=== PATIENT | female | born 1945 | race Caucasian/White ===

== ENCOUNTER 2017-03-06 09:42 | Observation (INO) ==
--- NOTE | 2017-03-06 10:42 | Emergency Department Note ---
Junior Corley Brittany, am scribing for, and in the presence of, Augusto Cardozo MD 10: 32. Juliane Corley James D, MD, personally performed the services described in this documentation, ascribed by Lisbeth Pacheco in my presence, and it is both accurate and complete . Arrival - Arrival Chief Complaint: Chest Pain ED Nursing Triage Note: pt was transfered from [facility] with cp and n/v. +sob Mode of Arrival: Stretcher Limitations: No Limitations Source: Patient, Family Time Seen by Provider: 03/06/17 10:20 - History of Present Illness HPI Narrative: This is a 71 y/o white female,who presents to the ED by EMS, transferred from [facility], for further evaluation of CP which started at 0500 this morning. She describes the pain as a sharp pressure type of pain. She localizes the pain to the mid sternum and did not radiate to the jaw or the left arm. She reports nausea and dyspnea with the chest pain but denies any diaphoresis. She states she took an ASA at home. Her PCP is Dr. Ziyad Small. She denie having a training development director. Pt reports the chest pain has now resolved. Pt has no other complaints/pain in the ED at this time. Pt has a PMHx of HTN, NIDDM, and Renal cancer. Pt denies a surgical Hx. Pt denies a family medical Hx. Pt denies a social Hx. Onset (ago): hour(s) (Started at 0500 this morning) Consistency: now resolved Severity: moderate Quality: sharp, other (Pressure) Allergies/Adverse Reactions: Allergies Allergy/AdvReac Type Severity Reaction Status Date / Time codeine Allergy Vomiting Verified 03/06/17 09:49 Penicillins AdvReac RASH Verified 03/06/17 09:49 Home Medications: Home Medications Medication Instructions Recorded Confirmed Type Aspirin EC Tab 81 mg PO DAILY 03/06/17 03/06/17 History Budesonide/Formoterol 160-4.5 2 puff INH Q4H 03/06/17 03/06/17 History [Symbicort 160-4.5] Ketorolac Tromethamine [Ketorolac 1 drop BOTH EYES DAILY 03/06/17 03/06/17 History 0.5% Oph Soln] Magnesium Chloride [Slow Mag] 64 mg PO BID 03/06/17 03/06/17 History Meloxicam 7.5 mg PO DAILY 03/06/17 03/06/17 History Potassium Chloride 20 meq PO DAILY 03/06/17 03/06/17 History amLODIPine [Norvasc] 10 mg PO DAILY 03/06/17 03/06/17 History dilTIAZem HCl [Diltiazem ER (12 90 mg PO DAILY 03/06/17 03/06/17 History hr)] glipiZIDE [Glipizide] 5 mg PO BID 03/06/17 03/06/17 History hydroCHLOROthiazide 25 mg PO DAILY PRN 03/06/17 03/06/17 History [Hydrochlorothiazide] metFORMIN [Glucophage] 500 mg PO BID 03/06/17 03/06/17 History Review of System - Review of System 12 point system: reviewed and no additional remarkable complaints except as stated - Review of System Constitutional: Absent: diaphoresis Cardiovascular: Present: chest pain, dyspnea on exertion Gastrointestinal: Present: nausea Medical,Surgical,& Family Hx - Medical History Cardio: History of: Hypertension Endocrine: History of: Diabetes Mellitus (NIDDM) Renal: History of: Renal (Kidney) Cancer - Social History Smoking Status: Never smoker Frequency of Alcohol Use: None Type of Drug Use: None Exam Vital Signs: Vital Signs Temperature 97.4 F L 03/06/17 09:43 Pulse Rate 84 03/06/17 10:13 Respiratory Rate 13 03/06/17 10:13 Blood Pressure 123/85 03/06/17 10:13 O2 Sat by Pulse Oximetry 98 03/06/17 10:13 GENERAL: This is a well-nourished well-developed white female in no apparent distress. VITAL SIGNS: Reviewed HEENT: Head is atraumatic and normocephalic. Pupils are equal round react to light. Extraocular movements are intact. Oropharynx is benign with moist mucous membranes. NECK: Neck is soft and supple without tenderness. There are no masses. There is no lymphadenopathy. LUNGS: Lungs are clear to auscultation. Chest rises symmetrically. There is no chest wall tenderness. CV: Heart is regular rate and rhythm without murmurs rubs or gallops. ABDOMEN: Abdomen is soft, nontender to palpation. There are no abdominal abnormal masses palpated. There is no organomegaly. Bowel sounds are present and active. SKIN: Skin is warm and dry. No rash. EXTREMITIES: Patient has full range of motion without tenderness. There is no pedal edema. NEUROLOGIC: Awake alert and oriented 4. Cranial nerves II through XII are grossly intact. Motor is 5 over 5 in all extremities bilaterally. Course - Consultations Consultation #1: Discussed with hospitalist. Patient will be admitted to their service Time: 10:42 Results - EKG EKG results: interpreted by ERMD - Impressions EKG: Normal sinus rhythm with a rate of 85, low voltage QRS, nonspecific ST-T wave changes. Disposition Clinical Impression: Chest pain, Diabetes mellitus, Essential hypertension Case discussed with: patient Disposition: Still a Patient Condition: Stable
[2017-03-06] MEDS ORDERED: hydroCHLOROthiazide 25 MG TABLET PO PRN (12:14)
[2017-03-06] MEDS ORDERED: DEXTROSE 50% 25 GM/50 ML VIAL IV PRN ×2 (12:14→14:35)
[2017-03-06] MEDS ORDERED: DOCUSATE SODIUM 100 MG CAPSULE PO PRN (12:14)
[2017-03-06] MEDS ORDERED: GLUCAGON 1 MG VIAL IM PRN ×2 (12:14→14:35)
[2017-03-06] MEDS ORDERED: ACETAMINOPHEN 325 MG TABLET PO PRN (12:14)
[2017-03-06] MEDS ORDERED: ONDANSETRON 4 MG/2 ML VIAL IV PRN (12:14)
--- NOTE | 2017-03-06 12:17 | EKG Report ---
Stationary ECG Study [facility] ER Test Date: 03/06/2017 9:55:52 AM Pat Name: MARÍA GARCIA Department: Room: 282 Gender: F Project Management Consultant: : 1945 Requested by: Patricia Mae Order Number: [id number] Reading MD: MENDOZA PALMA Intervals [place] Rate: 85 P: 49 [place]: 194 QRS: 49 QRSD: 97 T: -10 QT: 385 QTc: 427 Interpretive Statements SINUS RHYTHM LOW QRS VOLTAGE IN PRECORDIAL LEADS NONSPECIFIC T-WAVE ABNORMALITY Electronically Signed On 03-06-17 16:14:07 CDT by MENDOZA PALMA [email or web address]
--- NOTE | 2017-03-06 12:20 | Hospitalist History & Physical ---
<Patricia Mae - Last Filed: 03/06/17 12:09> Assessment and Plan (1) Chest pain Status: Acute Assessment and plan: Admit to telemetry for observation. Serial EKGs and serial troponins. Chest x- ray. Consult cards. BNP ordered. BMP and CBC ordered stat and in am. Current Visit: Yes (2) Diabetes mellitus Status: Acute Assessment and plan: Accuchecks achs. SSI ordered. Hemoglobin a1c in am. Diabetic diet. Current Visit: Yes (3) Essential hypertension Status: Acute Assessment and plan: Restart home meds. Current Visit: Yes History of Present Illness Chief complaint: Chest pain History of present illness: Ms. Woody is a 71 year old white female with a history of hypertension, diabetes , asthma, and kidney cancer was transferred from [facility] for evaluation of chest pain. Patient states that she began having severe chest pain this morning that woke her from sleep around 5 am. Patient describes midsternal chest pain that was "sharp and smothering" causing her to be short of breath. Patient took an aspirin along with her other morning medications. Patient states the pain did not radiate but with it she experienced nausea and she vomited twice. Patient denies ever having this chest pain in the past. Patient reports she went to her [id number]'s house and alerted her of the chest pain. They proceeded to the [facility] and was transferred here. Lab work (BMP/CBC/troponin) reviewed from outside facility and was unremarkable. Initial cardiac biomarker performed here was negative. Chest x- ray pending and serial troponins to follow. Patient will be admitted to the hospitalist service for further evaluation. Home Medications Medication Instructions Recorded Confirmed Type Aspirin EC Tab 81 mg PO DAILY 03/06/17 03/06/17 History Budesonide/Formoterol 160-4.5 2 puff INH Q4H 03/06/17 03/06/17 History [Symbicort 160-4.5] Ketorolac Tromethamine [Ketorolac 1 drop BOTH EYES DAILY 03/06/17 03/06/17 History 0.5% Oph Soln] Magnesium Chloride [Slow Mag] 64 mg PO BID 03/06/17 03/06/17 History Meloxicam 7.5 mg PO DAILY 03/06/17 03/06/17 History Potassium Chloride 20 meq PO DAILY 03/06/17 03/06/17 History amLODIPine [Norvasc] 10 mg PO DAILY 03/06/17 03/06/17 History dilTIAZem HCl [Diltiazem ER (12 90 mg PO DAILY 03/06/17 03/06/17 History hr)] glipiZIDE [Glipizide] 5 mg PO BID 03/06/17 03/06/17 History hydroCHLOROthiazide 25 mg PO DAILY PRN 03/06/17 03/06/17 History [Hydrochlorothiazide] metFORMIN [Glucophage] 500 mg PO BID 03/06/17 03/06/17 History sitaGLIPtin [Januvia] 100 mg PO DAILY 03/06/17 03/06/17 History Allergies Allergy/AdvReac Type Severity Reaction Status Date / Time codeine Allergy Vomiting Verified 03/06/17 09:49 Penicillins AdvReac RASH Verified 03/06/17 09:49 Medical,Surgical,& Family Hx - Medical History Cardio: History of: Hypertension Endocrine: History of: Diabetes Mellitus (NIDDM) Renal: History of: Renal (Kidney) Cancer - Family History Family History: Reports;: Family Cancer, Family Heart Disease - Social History Smoking Status: Never smoker Frequency of Alcohol Use: None Type of Drug Use: None Lives With:: Alone Functional capacity: uses cane/walker - Constitutional Constitutional: Present: frequent falls, headache(s). Absent: chills - EENT Eyes: Present: loss of vision, requires corrective lense Ears: Absent: decreased hearing, ear discharge Nose, mouth and throat: Present: headache(s). Absent: dysphagia, epistaxis - Cardiovascular Cardiovascular: Present: chest pain at rest, chest pain with activity, dyspnea on exertion, edema - Respiratory Respiratory: Present: dyspnea, dyspnea on exertion. Absent: hemoptysis - Gastrointestinal Gastrointestinal: Present: nausea, vomiting. Absent: abdominal pain - Genitourinary Genitourinary: Present: urinary incontinence. Absent: difficulty urinating - Neurological Neurological: Absent: confusion Exam - Constitutional Vitals: Period Temp Pulse Resp BP Sys/Lu Pulse Ox Last 24 Hr 97.4 F-97.4 F 82-92 13-18 123-136/83-92 96-98 General appearance: no acute distress, over weight - Head Head exam: Present: normal inspection, normocephalic - Eye Eye exam: Present: EOMI. Absent: periorbital swelling Pupils: Present: KORTNEY. Absent: dilated - Neck Neck exam: Present: normal inspection - Respiratory Respiratory exam: Present: other (coarse). Absent: rhonchi - Cardiovascular Cardiovascular exam: Present: regular rate and rhythm, other - GI/Abdominal GI/Abdominal exam: Present: normal bowel sounds, soft. Absent: tenderness - Extremities Exam Extremities exam: Present: normal capillary refill, full ROM, edema (trace in BLE) - Neurological Exam Neurological exam: Present: alert, oriented X3 - Psychiatric Psychiatric exam: Present: normal affect, normal mood - Skin Skin exam: Present: normal color, warm, dry Results - Labs Labs: Labs reviewed from outside facility Glucose 194 BUN 29 Creatinine 0.9 Calcium 8 point Sodium 141 Potassium 3.9 Chloride 103 Bicarb 27 CK 61 MMB 0.2 Myoglobulin 31 Magnesium 1.4 Troponin <0.017 WBC 9.3 RBC 4.8 HGB 13.3 HCT 40.4 Platelet 287 <Ghada Chow - Last Filed: 03/06/17 16:39> Assessment and Plan - Time spent with patient Time spent with patient: Greater than 30 minutes (32 minutes) History of Present Illness Chief complaint: Chest pain since 5AM History of present illness: Ms. Woody is a 71 year old female with history of kidney cancer, diabetes mellitus type 2, hypertension and asthma who presented to the hospital with a chief complaint of nonpleuritic, nonreproducible, non-positional severe midsternal chest pain described as pressure that started at approximately 5 AM. She denies that it was associated with eating. Patient states that it awoke her from sleep. She denies that the chest pain radiates. It was associated with shortness of breath. She took aspirin and her morning meds on an empty stomach and then afterwards began having nausea and vomiting 2. She denies any diaphoresis. She denies any abdominal pain. She told her daughter who took her to an outside hospital where a Nitropaste was placed. She said after that the pain resolved. That was approximately an hour. The case was discussed with Dr. Ambrose with [facility] from the outside hospital who referred her to [facility] for further evaluation and treatment. Patient denies any similar episodes in the past. A 10 point review of systems was reviewed with the patient and was unremarkable. Past medical history: Kidney cancer, diabetes, hypertension, asthma, nephrolithiasis Past surgical history: Bilateral cataract extractions, tonsillectomy, , total abdominal hysterectomy, cholecystectomy, lithotripsy, right kidney removal, Squamous cell carcinoma excision from the left side of her nose, and a left total knee replacement. Medication: Reviewed Allergies: Codeine-nausea and vomiting; penicillin-rash and itch Family history: Mother had an ND; grandmother, mother, and son had diabetes; father had "heart problems" in rheumatoid arthritis; daughter had breast cancer Social history: She denies any tobacco, alcohol, illicit drug use. She is . Vitals: GEN: A and O x 3 HEENT: Neck is supple. no lymphadenopathy or thyromegaly appreciated. no JVD. no carotid bruits auscultated. CV: RRR no M LUNGS: CTAB nonlabored ABD: Soft, NT, ND, +BS EXT: Warm no c/c/e NEURO: nonfocal Labs/Investigative studies: reviewed A/P: 1. Typical chest pain- R/O ACS 2. DM2 3. Asthma 4. Essential HTN 5. S/P right nephrectomy due to history of cancer Place in observation Cycle cardic markers Cardiology consult TSH Cardiac telemetry Would hold the meloxicam as NSAIDS can be associated with cardiac events. Resume home meds that are clinically appropriate DVT prophylaxis D/W pt and family and all questions answered. Exam - Constitutional Vitals: Period Temp Pulse Resp BP Sys/Lu Pulse Ox Last 24 Hr 97.4 F-97.4 F 82-92 13-18 116-136/78-92 96-98 Results - Labs CBC & BMP: 03/06/17 12:44 03/06/17 10:05
[2017-03-06] MEDS: BUDESONIDE/FORMOTEROL 160-4.5 INHALER 6 GM INH SCH ×3 (12:30→22:13)
--- NOTE | 2017-03-06 12:39 | EKG Report ---
Stationary ECG Study [facility] Test Date: 03/06/2017 12:38:32 PM Pat Name: MARÍA GARCIA Department: Room: 282 Gender: F Assistant Auto Center Manager: : 1945 Requested by: Patricia Mae Order Number: [id number] Reading MD: MENDOZA PALMA Intervals [place] Rate: 79 P: 68 [place]: 205 QRS: -26 QRSD: 108 T: 68 QT: 404 QTc: 438 Interpretive Statements SINUS RHYTHM BORDERLINE LEFT AXIS DEVIATION Electronically Signed On 03-06-17 16:15:11 CDT by MENDOZA PALMA [email or web address]
[2017-03-06 12:41] LABS: Magnesium 1.7 MG/DL (1.8-2.4); Osmolality,Calculated 287.3 MOS/KG (273-304); Potassium 3.8 MMOL/L (3.5-5.1)
[2017-03-06 12:53] LABS: Basophils % 0.4 % (0.0-0.8); Eosinophils # 0.1 10*3/uL (0.0-0.87); Eosinophils % 1.1 % (0.00-10.9); Hematocrit 38.3 VOL% (35.7-47.0); Hemoglobin 12.8 GM/DL (12.0-16.0); Immature Granulocytes % 0.4 %; Immature Granulocytes Absolute 0.04 #; Lymphocytes # 2.1 10*3/uL (1.4-4.0); Lymphocytes % 22.7 % (21.3-54.2); Mean Corpuscular HGB Conc 33.4 GM/DL (32-36); Mean Corpuscular Hemoglobin 28 PG (27-34); Mean Corpuscular Volume 83.8 FL (87-102); Monocytes # 0.5 10*3/uL (0.11-0.8); Monocytes % 5.5 % (1.7-12.7); Neutrophils # 6.6 10*3/uL (1.4-7.4); Neutrophils % 69.9 % (38.7-73.9); Platelet Count 259 T/CUMM (130-400); Red Blood Count 4.57 MC/CUMM (3.8-5.5); Red Cell Distribution Width 13.7 % (9.3-17.3); White Blood Count 9.4 T/CUMM (4-12)
[2017-03-06 13:02] LABS: INR 0.9; PT Patient Result 9.8 SECS
--- NOTE | 2017-03-06 13:06 | XRay Report ---
XR chest 1V portable Indication: Chest pain Comparison: Chest x-ray dated March 06, 2017 Technique: Single frontal view of the chest. Findings: The cardiomediastinal silhouette is stable in configuration. Chronic change of the lungs without focal consolidation, pleural effusion, or pneumothorax. Visualized osseous and surrounding soft tissue structures demonstrate no acute abnormality. IMPRESSION: No acute cardiopulmonary process demonstrated. PROCEDURE INTERPRETED AT [facility] DEPARTMENT OF RADIOLOGY Final Report Signed by: Dr Craig Paez
--- NOTE | 2017-03-06 15:11 | EKG Report ---
Stationary ECG Study [facility] Test Date: 03/06/2017 3:12:12 PM Pat Name: MARÍA GARCIA Department: Room: 282 Gender: F Nicker: PRADEEP : 1945 Requested by: Patricia Mae Order Number: [id number] Reading MD: MENDOZA PALMA Intervals [place] Rate: 85 P: 66 [place]: 217 QRS: -44 QRSD: 103 T: 61 QT: 355 QTc: 397 Interpretive Statements SINUS RHYTHM WITH PROLONGED [place] INTERVAL MARKED LEFT AXIS DEVIATION MODERATE VOLTAGE CRITERIA FOR LVH, CONSIDER NORMAL VARIANT POSSIBLE SEPTAL MYOCARDIAL INFARCTION, PROBABLY OLD Electronically Signed On 03-06-17 16:16:19 CDT by MENDOZA PALMA [email or web address]
[2017-03-06 16:02] LABS: Apearance,Urine CLEAR (Clear); Bacteria,Urine Many /HPF (Few); Bilirubin,Urine Negative (Negative); Blood, Urine Negative (Negative); Glucose,Urine (UA) Negative (Negative); Ketones,Urine Negative (Negative); Mucus,Urine Occasional /LPF (Occasional); Nitrite,Urine Positive (Negative); Protein,Urine Negative; RBC,Urine <1 /HPF (0-4); Squamous Epithelial Cell,Urine Occasional /HPF (0-10); Urine Color Yellow (Yellow); Urine Urobilinogen < 2.0 EU/DL (0.2-1.0); WBC,Urine 1 /HPF (0-6)
[2017-03-06 16:32] LABS: Troponin I Only < 0.015 NG/ML (0.00-0.045)
[2017-03-06] MEDS: INSULIN LISPRO 100 UNIT/ML SUBCUT SCH ×2 (16:40→20:28)
[2017-03-06] MEDS: NITROFURANTOIN MACRO/MONO 100 MG CAPSULE PO SCH (18:12)
[2017-03-06] MEDS ORDERED: glipiZIDE 5 MG TABLET PO SCH (21:00)
[2017-03-06] MEDS ORDERED: MAGNESIUM CHLORIDE 64 MG TABLET PO SCH (21:00)
[2017-03-06 23:20] LABS: Troponin I Only < 0.015 NG/ML (0.00-0.045)
--- NOTE | 2017-03-06 23:22 | Cardiology Consult Note ---
ITere April RN, am scribing for, and in the presence of, Tano Lopez MD 23:20. Assessment and Plan - Time spent with patient Time spent with patient: Greater than 30 minutes (Due to assessment, plan, documentation, medication review) (1) Chest pain Status: Acute Assessment and plan: Differential diagnosis would include GI, muscle skeletal, or CAD cause. Plan: Treat for GI, muscle skeletal, and CAD Replete magnesium Treat chest wall pain-tramadol, Tylenol, gabapentin Continue proton pump inhibitor If positive isoenzymes were if negative isoenzymes patient would like to do an outpatient stress test with cardiolite. he can be done at [facility] in a week or so continue proton pump inhibitor ears the magnesium thank you for letting me part in this patient's care rigors Current Visit: Yes (2) Diabetes mellitus Status: Chronic Current Visit: Yes (3) Essential hypertension Status: Chronic Current Visit: Yes History of Present Illness - Data of Consult Patient: new to practice Consult date: 03/06/17 Requesting Physician: Patricia Mae - Consult Narrative Reason for consult: Chest pain History of present illness: Concession Attendant: Dr. Ashley Ms. Woody is a 71 year old female who has seen Dr. Ashley at [facility]. She has a history of hypertension, NIDDM, neuropathy arthritis, and kidney cancer. She reports she had a heart cath done years ago here at [facility] by Dr. Greenwood that she was told was negative, I do not have that report 9-[address] Ashley stress test turned that she was told was okay. 3 years ago she was seen by plant wire chief at [facility], she does not remember the name, who cleared her for surgery. She states she did not have a heart cath or stress test done at that time. She also reports that report, she has a leaky valve. She says she has had echocardiogram to check this, does not know when her last was done. We will try to get these records. Other surgical history includes right nephrectomy, cholecystectomy, lithotripsy, left knee replacement, hysterectomy, , tonsillectomy, bilateral cataract, and appendectomy. Family history includes heart disease in mother and father, hypertension in mother, diabetes in mother, and cancer in daughter. She reports is a lifetime non-smoker and lives alone. She states she is very active and participates in water aerobics at [facility] 3 times a week. She states she was in her normal state of health when she went to bed last night. This morning she was woke up by sharp pressure in the center of her chest that was associated with shortness of breath. She reports the pain would come and go to and rates it a 5 on a scale of 1-10 when it was at its worst. She denies any radiation of this pain. She also had nausea and vomiting with this. She presented to the emergency department at [facility] for further evaluation. There she was given Nitro-Bid ointment that she said improved the pain and before she was transferred here to our facility the pain was relieved. Of note she reports she was taken day before yesterday on her back. Troponin at [facility] as well as troponin done at our facility was negative, BNP 60 , creatinine is 0.80. Chest x-ray showed no acute cardiopulmonary process demonstrated. She is seen resting in bed no acute distress with family. Oxygen is in use via nasal cannula. She denies any chest pain, shortness of breath, palpitations, or dizziness. Her vital signs been stable, blood pressure currently 116/78. CC: Ghada Chow MD - Home Medications and Allergies Home Medications: Home Medications Medication Instructions Recorded Confirmed Type Aspirin EC Tab 81 mg PO DAILY 03/06/17 03/06/17 History Budesonide/Formoterol 160-4.5 2 puff INH Q4H 03/06/17 03/06/17 History [Symbicort 160-4.5] Ketorolac Tromethamine [Ketorolac 1 drop BOTH EYES DAILY 03/06/17 03/06/17 History 0.5% Oph Soln] Magnesium Chloride [Slow Mag] 64 mg PO BID 03/06/17 03/06/17 History Meloxicam 7.5 mg PO DAILY 03/06/17 03/06/17 History Potassium Chloride 20 meq PO DAILY 03/06/17 03/06/17 History amLODIPine [Norvasc] 10 mg PO DAILY 03/06/17 03/06/17 History dilTIAZem HCl [Diltiazem ER (12 90 mg PO DAILY 03/06/17 03/06/17 History hr)] glipiZIDE [Glipizide] 5 mg PO BID 03/06/17 03/06/17 History hydroCHLOROthiazide 25 mg PO DAILY PRN 03/06/17 03/06/17 History [Hydrochlorothiazide] metFORMIN [Glucophage] 500 mg PO BID 03/06/17 03/06/17 History sitaGLIPtin [Januvia] 100 mg PO DAILY 03/06/17 03/06/17 History Allergies/Adverse Reactions: Allergies Allergy/AdvReac Type Severity Reaction Status Date / Time codeine Allergy Vomiting Verified 03/06/17 09:49 Penicillins AdvReac RASH Verified 03/06/17 09:49 - Constitutional Constitutional: Present: as per HPI - EENT Eyes: Present: requires corrective lense. Absent: blurry vision, loss of vision Ears: Absent: decreased hearing, ear pain, tinnitus Nose, mouth and throat: Present: epistaxis (She had one episode about a month ago), headache(s), sore throat. Absent: dysphagia, neck pain - Cardiovascular Cardiovascular: Present: chest pain at rest, dyspnea. Absent: edema, radiating jaw, neck or arm pain, lightheadedness, orthopnea, palpitations - Respiratory Respiratory: Present: dyspnea, wheezing. Absent: cough, hemoptysis - Gastrointestinal Gastrointestinal: Present: nausea, vomiting. Absent: abdominal pain, constipation, diarrhea, hematemesis, hematochezia, melena - Genitourinary Genitourinary: Absent: dysuria, hematuria - Musculoskeletal Musculoskeletal: Present: limited range of motion, muscle weakness - Neurological Neurological: Present: abnormal gait, headache(s). Absent: abnormal speech, dizziness, frequent falls, syncope - Psychiatric Psychiatric: Absent: anxiety, depression - Endocrine Endocrine: Present: fatigue - Hematologic/Lymphatic Hematologic/Lymphatic: Absent: easy bleeding, easy bruising Medical,Surgical,& Family Hx - Medical History Cardio: History of: Hypertension HEENT: History of: Eye Problem (cataract surgery with 2 implants) Endocrine: History of: Diabetes Mellitus (NIDDM) Respiratory: History of: Asthma Renal: History of: Renal (Kidney) Cancer Other: History of: Cancer (skin cancer), Skin Problems (skin cancer) - Surgical History Cardiac Surgeries: Sugical HX of: Cardiac Catheterization (over 20 years ago) Thoracic Surgeries: Surgical HX of;: Kidney (Renal Surgery) (right kidney removed due to cancer), Lithotripsy HEENT Surgeries: Surgical HX of: Eye Surgery (Bilateral cataract), Tonsilectomy & Adenoidectomy Abdominal Surgeries: Surgical HX of: Appendectomy, Cholecystectomy, EGD Reproductive Surgeries: Surgical HX of;: Section, Hysterectomy Orthopedic Surgeries: Surgical HX of;: Total Knee Replacement (right) - Family History Family History: Reports;: Family Cancer (Daughter), Family Diabetes (Mother), Family Heart Disease (Mother father), Family Hypertension (Mother) - Social History Smoking Status: Never smoker Have you smoked in the last 12 months: No Frequency of Alcohol Use: None Type of Drug Use: None Lives With:: Alone Functional capacity: uses cane/walker Physical Examination Vital Signs Temp Pulse Resp BP Pulse Ox 97.4 F L 92 H 18 136/92 97 03/06/17 09:43 03/06/17 09:43 03/06/17 09:43 03/06/17 09:43 03/06/17 09:43 General: Present: Appears Well, No Apparent Distress HEENT: Present: PERRL, Mucus Membranes Moist Neck: Present: Supple Neck, Midline Trachea, No Bruit Cardiac: Present: Reg Rate and Rhythm Lungs: Present: Normal Breath Sounds, Oxygen (Via nasal cannula), No Wheeze, Rales, Rhonchi Neuro: Absent: Resting Tremor, Essential Tremor Abdomen: Present: Soft, Active Bowel Sounds, Non-Tender. Absent: Distended Skin: Present: Other (Redness from tick bite noted to her mid back near her spine) Gait: Present: Poor Gait Extremities: Present: Normal Upper Extr. Pulses, Normal Lower Extr. Pulses. Absent: Normal Gait, No Edema Result/EKG - Labs CBC & BMP: 03/06/17 12:44 03/06/17 10:05 Lab Results: I have reviewed the past 24 hour labs Labs: Laboratory Results - last 24 hr 03/06/17 03/06/17 03/06/17 10:05 10:05 10:05 WBC RBC Hgb Hct MCV MCH MCHC RDW Plt Count MPV Neut % (Auto) Lymph % (Auto) [place] % (Auto) Eos % (Auto) Baso % (Auto) Neut # (Auto) Lymph # (Auto) [place] # (Auto) Eos # (Auto) Baso # (Auto) Immature Gran % Nucleated RBC % Immature Gran # Nucleated RBCs # INR 0.9 PT Patient/Control Mix 9.8 Sodium Potassium Chloride Carbon Dioxide Anion Gap BUN Creatinine GFR Calculation BUN/Creatinine Ratio Glucose Calculated Osmolality Calcium Magnesium Troponin I < 0.015 B-Natriuretic Peptide 60 03/06/17 03/06/17 10:05 12:44 WBC 9.4 RBC 4.57 Hgb 12.8 Hct 38.3 MCV 83.8 L MCH 28 MCHC 33.4 RDW 13.7 Plt Count 259 MPV 10.0 Neut % (Auto) 69.9 Lymph % (Auto) 22.7 [place] % (Auto) 5.5 Eos % (Auto) 1.1 Baso % (Auto) 0.4 Neut # (Auto) 6.6 Lymph # (Auto) 2.1 [place] # (Auto) 0.5 Eos # (Auto) 0.1 Baso # (Auto) 0.0 Immature Gran % 0.4 Nucleated RBC % 0.0 Immature Gran # 0.04 Nucleated RBCs # 0.00 INR PT Patient/Control Mix Sodium 141 Potassium 3.8 Chloride 104 Carbon Dioxide 28 Anion Gap 12.8 BUN 25 H Creatinine 0.80 GFR Calculation 90 BUN/Creatinine Ratio 31.00 H Glucose 158 H Calculated Osmolality 287.3 Calcium 9.0 Magnesium 1.7 L Troponin I B-Natriuretic Peptide - Diagnostic Findings Procedure: Chest x-ray: report reviewed by me - EKG EKG results: interpreted by me EKG shows: sinus rhythm I, Tano Lopez MD, personally performed the services described in this documentation, ascribed by Janie Carranza RN in my presence, and it is both accurate and complete 320 .
[2017-03-07] MEDS: BUDESONIDE/FORMOTEROL 160-4.5 INHALER 6 GM INH SCH ×2 (01:29→04:28)
[2017-03-07 04:15] LABS: Basophils # 0.1 10*3/uL (0.0-0.2); Basophils % 0.7 % (0.0-0.8); Eosinophils # 0.3 10*3/uL (0.0-0.87); Hemoglobin 12.3 GM/DL (12.0-16.0); Immature Granulocytes % 0.3 %; Immature Granulocytes Absolute 0.02 #; Lymphocytes # 1.9 10*3/uL (1.4-4.0); Lymphocytes % 27.3 % (21.3-54.2); Mean Corpuscular HGB Conc 33.2 GM/DL (32-36); Mean Corpuscular Hemoglobin 28 PG (27-34); Mean Corpuscular Volume 83.3 FL (87-102); Mean Platelet Volume 10.3 FL (9.6-12.0); Monocytes # 0.6 10*3/uL (0.11-0.8); Monocytes % 8.6 % (1.7-12.7); Neutrophils # 4.1 10*3/uL (1.4-7.4); Neutrophils % 59.1 % (38.7-73.9); Platelet Count 247 T/CUMM (130-400); Red Blood Count 4.44 MC/CUMM (3.8-5.5); Red Cell Distribution Width 13.7 % (9.3-17.3)
[2017-03-07 04:58] LABS: Magnesium 1.8 MG/DL (1.8-2.4); Osmolality,Calculated 289.1 MOS/KG (273-304); Potassium 3.9 MMOL/L (3.5-5.1); Risk Ratio 2.33; Thyroid Stimulating Hormone 2.01 uIU/ml (0.358-3.74); VLDL CHOLESTEROL 15.6 MG/DL
[2017-03-07] MEDS: NITROFURANTOIN MACRO/MONO 100 MG CAPSULE PO SCH (05:25)
[2017-03-07] MEDS ORDERED: KETOROLAC 0.5% OPH SOLN 3 ML BOTTLE BOTH EYES SCH (09:00)
[2017-03-07] MEDS ORDERED: ASPIRIN EC 81 MG TABLET PO SCH (09:00)
[2017-03-07] MEDS ORDERED: DILTIAZEM HCL 90 MG PO SCH (09:00)
[2017-03-07] MEDS ORDERED: amLODIPine 10 MG TABLET PO SCH (09:00)
[2017-03-07] MEDS ORDERED: POTASSIUM CHLORIDE 20 MEQ TABLET PO SCH (09:00)
[2017-03-07] MEDS ORDERED: MELOXICAM 7.5 MG TABLET PO SCH (09:00)
[2017-03-07] MEDS: INSULIN LISPRO 100 UNIT/ML SUBCUT SCH (10:54)
--- NOTE | 2017-03-07 11:22 | EKG Report ---
Stationary ECG Study [facility] Test Date: 03/07/2017 11:23:13 AM Pat Name: MARÍA GARCIA Department: Room: 282 Gender: F [employer] Supervisor: PRADEEP : 1945 Requested by: Salvador Lopez Order Number: [id number] Reading MD: SALVADOR LOPEZ Intervals [place] Rate: 83 P: 60 MO: 200 QRS: -42 QRSD: 93 T: 50 QT: 374 QTc: 414 Interpretive Statements SINUS RHYTHM MARKED LEFT AXIS DEVIATION PATTERN CONSISTENT WITH PULMONARY DISEASE VOLTAGE CRITERIA FOR LVH Electronically Signed On 03-09-17 11:57:18 CDT by SALVADOR LOPEZ [email or web address]
[2017-03-07] MEDS ORDERED: PANTOPRAZOLE 40 MG TABLET PO SCH (11:30)
[2017-03-07 11:41] VITALS: BP 141/80
[2017-03-07] MEDS ORDERED: ACETAMINOPHEN 325 MG TABLET PO SCH (12:00)
--- NOTE | 2017-03-07 12:05 | Discharge Summary ---
<Patricia Mae - Last Filed: 03/07/17 11:47> Hospital Course - Hospital Course Hospital Course: Ms. Woody is a 71 year old white female with a history of hypertension, diabetes , asthma, and kidney cancer was transferred from [facility] for evaluation of chest pain on 03/06. Patient states that she began having severe chest pain that woke her from sleep around 5 am. Patient describes midsternal chest pain that was "sharp and smothering" causing her to be short of breath. Patient took an aspirin along with her other morning medications. Patient states the pain did not radiate but with it she experienced nausea and she vomited twice. Patient denies ever having this chest pain in the past. Patient reports she went to her [id number]-ett's house and alerted her of the chest pain. They proceeded to the [facility] and was transferred here. Lab work ( BMP/CBC/troponin) reviewed from outside facility and was unremarkable. Initial cardiac biomarker performed here was negative. Patient was placed in observation of the hospitalist service for further evaluation. Cardiology was consulted. TSH was normal. Lipid panel was good with high HDL noted. The recommendation was to treat chest wall pain with tramadol, Tylenol, gabapentin. Cardiology also recommended follow-up for outpatient cardiac stress test in 1 week and [address] Lopez. Today the patient's labs are stable and exam are stable. Patient is chest pain free. UA suggested UTI so patient was started on nitrofurantoin and instructed to follow-up with PCP in 1-2 days for results. The patient is stable for discharge. Diagnosis - Discharge Diagnosis (1) Chest pain Status: Acute (2) Diabetes mellitus Status: Chronic (3) Essential hypertension Status: Chronic Specialty Discharge - Follow Up or Referrals Follow up with: Tano Lopez MD [Physician] - (She needs nuclear Lexiscan with Dr. Lopez at [facility] next week with appointment to see him in office the following week.) Francheska Kan, DISPENSER OPERATOR [Advanced Practice Nurse] - 3 Days Discharge Plan - Discharge Data Disposition: Disch To Home/Self Care - Discharge Medications New Acetaminophen Tab [Tylenol Tab] 325 mg PO BID #28 tablet Gabapentin Cap/Tab [Neurontin Cap/Tab] 100 mg PO TID #90 capsule Pantoprazole Tab [Protonix Tab] 40 mg PO DAILY #30 tablet Nitrofurantoin Macro/[place] [Macrobid] 100 mg PO Q12H #14 capsule Continue amLODIPine [Norvasc] 10 mg PO DAILY Aspirin EC Tab 81 mg PO DAILY Budesonide/Formoterol 160-4.5 [Symbicort 160-4.5] 2 puff INH Q4H glipiZIDE [Glipizide] 5 mg PO BID hydroCHLOROthiazide [Hydrochlorothiazide] 25 mg PO DAILY PRN PRN Reason: fluid Ketorolac Tromethamine [Ketorolac 0.5% Oph Soln] 1 drop BOTH EYES DAILY Magnesium Chloride [Slow Mag] 64 mg PO BID metFORMIN [Glucophage] 500 mg PO BID Potassium Chloride 20 meq PO DAILY sitaGLIPtin [Januvia] 100 mg PO DAILY dilTIAZem HCl [Diltiazem ER (12 hr)] 90 mg PO DAILY Discontinued Meloxicam 7.5 mg PO DAILY - Follow Up or Referral Follow Up: Tano Lopez MD [Physician] - (She needs nuclear Lexiscan with Dr. Lopez at [facility] next week with appointment to see him in office the following week.) - Forms/Instructions Exam - Constitutional Vitals: Period Temp Pulse Resp BP Sys/Lu Pulse Ox Last 24 Hr 97.0 F-98.6 F 62-93 16-20 116-146/67-80 96-98 Discharge Results Procedures and tests throughout hospitalization: Pending Orders 03/06/17 Urine Culture Routine Labs on day of discharge: Labs from last 24 hours 03/07/17 03/07/17 03/07/17 11:31 07:43 03:13 WBC RBC Hgb Hct MCV MCH MCHC RDW Plt Count MPV Neut % (Auto) Lymph % (Auto) [place] % (Auto) Eos % (Auto) Baso % (Auto) Neut # (Auto) Lymph # (Auto) [place] # (Auto) Eos # (Auto) Baso # (Auto) Immature Gran % Nucleated RBC % Immature Gran # Nucleated RBCs # INR PT Patient/Control Mix Sodium Potassium Chloride Carbon Dioxide Anion Gap BUN Creatinine GFR Calculation BUN/Creatinine Ratio Glucose POC Glucose 158 H 182 H Hemoglobin A1c 7.5 H Calculated Osmolality Calcium Magnesium Total Creatine Kinase CK-MB (CK-2) Troponin I B-Natriuretic Peptide Triglycerides Cholesterol LDL Cholesterol VLDL Cholesterol HDL Cholesterol Heart Disease Risk Ratio TSH 3rd Generation Urine Color Urine Appearance Urine pH Ur Specific [place] Urine Protein Urine Glucose (UA) Urine Ketones Urine Blood Urine Nitrate Urine Bilirubin Urine Urobilinogen Urine Leukocytes Urine RBC Urine WBC Ur Squamous Epith Cells Urine Bacteria Urine Mucus Ur Culture Indicated? 03/07/17 03/07/17 03/06/17 03:13 03:13 Unknown WBC 7.0 RBC 4.44 Hgb 12.3 Hct 37.0 MCV 83.3 L MCH 28 MCHC 33.2 RDW 13.7 Plt Count 247 MPV 10.3 Neut % (Auto) 59.1 Lymph % (Auto) 27.3 [place] % (Auto) 8.6 Eos % (Auto) 4.0 Baso % (Auto) 0.7 Neut # (Auto) 4.1 Lymph # (Auto) 1.9 [place] # (Auto) 0.6 Eos # (Auto) 0.3 Baso # (Auto) 0.1 Immature Gran % 0.3 Nucleated RBC % 0.0 Immature Gran # 0.02 Nucleated RBCs # 0.00 INR PT Patient/Control Mix Sodium 142 Potassium 3.9 Chloride 104 Carbon Dioxide 29 Anion Gap 12.9 BUN 25 H Creatinine 0.70 GFR Calculation 105 BUN/Creatinine Ratio 35.00 H Glucose 144 H POC Glucose Hemoglobin A1c Calculated Osmolality 289.1 Calcium 9.0 Magnesium 1.8 Total Creatine Kinase CK-MB (CK-2) Troponin I B-Natriuretic Peptide Triglycerides 78 Cholesterol 170 LDL Cholesterol 102.0 VLDL Cholesterol 15.6 HDL Cholesterol 73 H Heart Disease Risk Ratio 2.33 TSH 3rd Generation 2.010 Urine Color Yellow Urine Appearance Clear Urine pH 6.0 Ur Specific [place] 1.010 Urine Protein Negative Urine Glucose (UA) Negative Urine Ketones Negative Urine Blood Negative Urine Nitrate Positive H Urine Bilirubin Negative Urine Urobilinogen < 2.0 H Urine Leukocytes Negative Urine RBC <1 Urine WBC 1 Ur Squamous Epith Cells Occasional Urine Bacteria Many Urine Mucus Occasional Ur Culture Indicated? Results to follow 03/06/17 03/06/17 03/06/17 22:39 20:23 16:26 WBC RBC Hgb Hct MCV MCH MCHC RDW Plt Count MPV Neut % (Auto) Lymph % (Auto) [place] % (Auto) Eos % (Auto) Baso % (Auto) Neut # (Auto) Lymph # (Auto) [place] # (Auto) Eos # (Auto) Baso # (Auto) Immature Gran % Nucleated RBC % Immature Gran # Nucleated RBCs # INR PT Patient/Control Mix Sodium Potassium Chloride Carbon Dioxide Anion Gap BUN Creatinine GFR Calculation BUN/Creatinine Ratio Glucose POC Glucose 212 H 187 H Hemoglobin A1c Calculated Osmolality Calcium Magnesium Total Creatine Kinase 31 CK-MB (CK-2) < 1.0 Troponin I < 0.015 B-Natriuretic Peptide Triglycerides Cholesterol LDL Cholesterol VLDL Cholesterol HDL Cholesterol Heart Disease Risk Ratio TSH 3rd Generation Urine Color Urine Appearance Urine pH Ur Specific [place] Urine Protein Urine Glucose (UA) Urine Ketones Urine Blood Urine Nitrate Urine Bilirubin Urine Urobilinogen Urine Leukocytes Urine RBC Urine WBC Ur Squamous Epith Cells Urine Bacteria Urine Mucus Ur Culture Indicated? 03/06/17 03/06/17 03/06/17 15:51 12:44 10:05 WBC 9.4 RBC 4.57 Hgb 12.8 Hct 38.3 MCV 83.8 L MCH 28 MCHC 33.4 RDW 13.7 Plt Count 259 MPV 10.0 Neut % (Auto) 69.9 Lymph % (Auto) 22.7 [place] % (Auto) 5.5 Eos % (Auto) 1.1 Baso % (Auto) 0.4 Neut # (Auto) 6.6 Lymph # (Auto) 2.1 [place] # (Auto) 0.5 Eos # (Auto) 0.1 Baso # (Auto) 0.0 Immature Gran % 0.4 Nucleated RBC % 0.0 Immature Gran # 0.04 Nucleated RBCs # 0.00 INR PT Patient/Control Mix Sodium 141 Potassium 3.8 Chloride 104 Carbon Dioxide 28 Anion Gap 12.8 BUN 25 H Creatinine 0.80 GFR Calculation 90 BUN/Creatinine Ratio 31.00 H Glucose 158 H POC Glucose Hemoglobin A1c Calculated Osmolality 287.3 Calcium 9.0 Magnesium 1.7 L Total Creatine Kinase 33 CK-MB (CK-2) < 1.0 Troponin I < 0.015 B-Natriuretic Peptide Triglycerides Cholesterol LDL Cholesterol VLDL Cholesterol HDL Cholesterol Heart Disease Risk Ratio TSH 3rd Generation Urine Color Urine Appearance Urine pH Ur Specific [place] Urine Protein Urine Glucose (UA) Urine Ketones Urine Blood Urine Nitrate Urine Bilirubin Urine Urobilinogen Urine Leukocytes Urine RBC Urine WBC Ur Squamous Epith Cells Urine Bacteria Urine Mucus Ur Culture Indicated? 03/06/17 03/06/17 10:05 10:05 WBC RBC Hgb Hct MCV MCH MCHC RDW Plt Count MPV Neut % (Auto) Lymph % (Auto) [place] % (Auto) Eos % (Auto) Baso % (Auto) Neut # (Auto) Lymph # (Auto) [place] # (Auto) Eos # (Auto) Baso # (Auto) Immature Gran % Nucleated RBC % Immature Gran # Nucleated RBCs # INR 0.9 PT Patient/Control Mix 9.8 Sodium Potassium Chloride Carbon Dioxide Anion Gap BUN Creatinine GFR Calculation BUN/Creatinine Ratio Glucose POC Glucose Hemoglobin A1c Calculated Osmolality Calcium Magnesium Total Creatine Kinase CK-MB (CK-2) Troponin I B-Natriuretic Peptide 60 Triglycerides Cholesterol LDL Cholesterol VLDL Cholesterol HDL Cholesterol Heart Disease Risk Ratio TSH 3rd Generation Urine Color Urine Appearance Urine pH Ur Specific [place] Urine Protein Urine Glucose (UA) Urine Ketones Urine Blood Urine Nitrate Urine Bilirubin Urine Urobilinogen Urine Leukocytes Urine RBC Urine WBC Ur Squamous Epith Cells Urine Bacteria Urine Mucus Ur Culture Indicated? Preliminary micro results at discharge 03/06/17 Unknown Urine Culture - Preliminary Urine,Voided Gram Negative Rods DS: Provider Date of admission: 03/06/17 10:33 Primary care physician: . No PCP Attending physician on admission: Ghada Chow MD Consults: 03/06/17 12:14 Consult to Physician [CONS] Routine Comment: Consulting Provider: Tano Lopez Discharging clinician: Patricia Mae NP <Ghada Chow - Last Filed: 03/07/17 12:25> Hospital Course - Time spent with patient Time with patient DS: Greater than 30 minutes (36 minutes) Diagnosis - Discharge Diagnosis (1) Acute cystitis with positive culture Status: Acute (2) Chest pain Status: Resolved (3) Diabetes mellitus Status: Chronic (4) Essential hypertension Status: Chronic Discharge Plan - Discharge Data Condition at Discharge: Stable Discharge Diet: diabetic diet, heart healthy Activity: resume usual activities as tolerated Contact your physician if you experience:: fever over 101, Difficulty voiding, Redness or swelling, Nausea/Vomiting, Shortness of breath, Bleeding, pain uncontrolled by pain medications Exam - Constitutional Exam: GEN: A and O x 3 HEENT: Neck is supple. no lymphadenopathy or thyromegaly appreciated. no JVD. no carotid bruits auscultated. CV: RRR no M LUNGS: CTAB nonlabored ABD: Soft, NT, ND, +BS EXT: Warm no c/c/e NEURO: nonfocal
[2017-03-07] MEDS ORDERED: GABAPENTIN 100 MG CAPSULE PO SCH (15:00)
--- NOTE | 2017-03-07 21:48 | Cardiology Progress Note ---
Assessment and Plan (1) Chest pain Status: Resolved Assessment and plan: Differential diagnosis would include GI, muscle skeletal, or CAD cause. Plan: Treat for GI, muscle skeletal, and CAD Replete magnesium Treat chest wall pain-tramadol, Tylenol, gabapentin Continue proton pump inhibitor If positive isoenzymes were if negative isoenzymes patient would like to do an outpatient stress test with cardiolite. he can be done at [facility] in a week or so continue proton pump inhibitor ears the magnesium thank you for letting me part in this patient's care rigors 06/15 Chest pain is gone Enzymes are negative, EKG negative We will allow the patient to be discharged and do an outpatient Cardiolite Lexiscan next week on 03/11 her 03/13 at [facility] We will keep on an aspirin per day Will continue treatment of chest wall pain and GI pain Thank you for allowing me to participate in this patient's care (2) Diabetes mellitus Status: Chronic (3) Essential hypertension Status: Chronic Cardiology - PN: Subj Interval history: No more chest pain or shortness of breath. Exam (Progress Note) - Constitutional Vitals: Period Temp Pulse Resp BP Sys/Lu Pulse Ox Last 24 Hr 97.0 F-98.6 F 62-93 16-20 130-146/67-80 96-98 Exam: HEENT: Pupils equal, reactive to light and accommodation Neck: NoJVD or bruit Lungs clear to auscultation Heart: Regular rhythm rate with normal S1 and S2. Apical S4 Abdomen: No hepatosplenomegaly Spine/extremities: No clubbing, cyanosis, or edema Neuro: Nonfocal Psych: No depression or anxiety No chest wall tenderness Result/EKG - Labs CBC & BMP: 03/07/17 03:13 03/07/17 03:13 Lab Results: I have reviewed the past 24 hour labs Labs: Laboratory Results - last 24 hr 03/06/17 03/07/17 03/07/17 22:39 03:13 03:13 WBC 7.0 RBC 4.44 Hgb 12.3 Hct 37.0 MCV 83.3 L MCH 28 MCHC 33.2 RDW 13.7 Plt Count 247 MPV 10.3 Neut % (Auto) 59.1 Lymph % (Auto) 27.3 [place] % (Auto) 8.6 Eos % (Auto) 4.0 Baso % (Auto) 0.7 Neut # (Auto) 4.1 Lymph # (Auto) 1.9 [place] # (Auto) 0.6 Eos # (Auto) 0.3 Baso # (Auto) 0.1 Immature Gran % 0.3 Nucleated RBC % 0.0 Immature Gran # 0.02 Nucleated RBCs # 0.00 Sodium 142 Potassium 3.9 Chloride 104 Carbon Dioxide 29 Anion Gap 12.9 BUN 25 H Creatinine 0.70 GFR Calculation 105 BUN/Creatinine Ratio 35.00 H Glucose 144 H POC Glucose Hemoglobin A1c Calculated Osmolality 289.1 Calcium 9.0 Magnesium 1.8 Total Creatine Kinase 31 CK-MB (CK-2) < 1.0 Troponin I < 0.015 Triglycerides 78 Cholesterol 170 LDL Cholesterol 102.0 VLDL Cholesterol 15.6 HDL Cholesterol 73 H Heart Disease Risk Ratio 2.33 TSH 3rd Generation 2.010 03/07/17 03/07/17 03/07/17 03:13 07:43 11:31 WBC RBC Hgb Hct MCV MCH MCHC RDW Plt Count MPV Neut % (Auto) Lymph % (Auto) [place] % (Auto) Eos % (Auto) Baso % (Auto) Neut # (Auto) Lymph # (Auto) [place] # (Auto) Eos # (Auto) Baso # (Auto) Immature Gran % Nucleated RBC % Immature Gran # Nucleated RBCs # Sodium Potassium Chloride Carbon Dioxide Anion Gap BUN Creatinine GFR Calculation BUN/Creatinine Ratio Glucose POC Glucose 182 H 158 H Hemoglobin A1c 7.5 H Calculated Osmolality Calcium Magnesium Total Creatine Kinase CK-MB (CK-2) Troponin I Triglycerides Cholesterol LDL Cholesterol VLDL Cholesterol HDL Cholesterol Heart Disease Risk Ratio TSH 3rd Generation Negative EKG Negative cardiac isoenzymes Specialty Discharge - Follow Up or Referrals Follow up with: Tano Lopez MD [Physician] - (She needs nuclear Lexiscan with Dr. Lopez at [facility] next week with appointment to see him in office the following week.) Francheska Kan, TRANSITION COACH [Advanced Practice Nurse] - 3 Days
== END 2017-03-07 13:20 | disposition home or self-care (01) ==
LOC: EDUNIT# → EDBD → N.EDINP 09:42 → N.ED 09:42 → N.TELEN 10:55
PROVIDERS: ADMIT Pediatrics; ATTEND Pediatrics